=== PATIENT | female | born 1960 | race Caucasian/White ===

== ENCOUNTER → 2016-06-28 | Outpatient (CLI) | payer SELFPAY ==
[2014-02-23 10:45] VITALS: BP 121/70
[~2016-06-28] MED LIST: ALPR1TAB2 PO; DEXT20TA2 PO
--- NOTE | 2016-06-28 11:24 | KCIC ---
Examination: Two views of the chest HISTORY History of cough for 2 weeks. COMPARISON None available Findings : The cardiomediastinal silhouette grossly appears unremarkable. There is no acute infiltrate or visualized pneumothorax identified. Mild prominent appearing bilateral perihilar bronchovascular markings. Impression: Mild prominent bilateral perihilar bronchovascular markings could be due to bronchitis. Electronically signed by: Eulogio Dubois (Jun 28, 2016 11:23:13)
== END | disposition home or self-care (01) ==
LOC: KCIC 10:13
PROVIDERS: ATTEND Nurse Practitioner Family
DX: R05 Cough (principal); R50.9 Fever, unspecified; F17.200 Nicotine dependence, unspecified, uncomplicated
CPT/HCPCS: 71020

== ENCOUNTER → 2019-01-21 | Outpatient (CLI) | payer OTHER ==
[2014-02-23 10:45] VITALS: BP 121/70
--- NOTE | 2019-01-21 17:42 | KCIC ---
Bone mineral density exam History: Osteoporosis screening, postmenopausal Comparison: None Findings: Bone mineral density examination utilizing DEXA was performed. Left hip bone mineral density of 0.72 g/cm2 corresponds with a T score -1.8, Z score -1.1 The bone mineral density of the lumbar spine was 0.801 g/cm2 which corresponds with a T-score of -2.2, Z score -1.1. By World Congress on Osteoporosis criteria, a T score of 0 to-1 SD is considered to be within normal limits. A T score of -1 to -2.5 SD is considered osteopenia. A T score less than -2.5 SD is considered osteoporosis Impression: 1. There is osteopenia of the lumbar spine and the left hip. Electronically signed by: Alirio Cedillo MD (01/21/2019 5:39 PM) [facility]
--- NOTE | 2019-01-22 13:19 | KCIC ---
BILATERAL SCREENING MAMMOGRAM History: Routine screening. Comparison: Right CC November 03, 2012. Right MLO 05/19/2013. No left mammogram comparison images are available. Technique: Routine bilateral digital mammogram views were obtained. Findings: Breast Tissue Density B : There are scattered areas of fibroglandular density. There are a few punctate microcalcifications in each breast. There are no dominant masses, suspicious microcalcifications, or architectural distortion. IMPRESSION: No mammographic evidence of malignancy. Recommend routine screening. BI-RADS category 2: Benign findings. The images were reviewed with computer aided detection. Patient information is entered into the reminder system with a target due date for the next screening mammogram. Mammography is the most sensitive method for finding small breast cancers, but it does not detect them all and is not a substitute for careful clinical examination. A negative mammogram does not negate a clinically suspicious finding and should not result in delay in biopsying a clinically suspicious abnormality. "Our facility is accredited by the [employer] Mammography Program." Electronically signed by: Karan Balderrama MD (01/22/2019 1:16 PM) [facility]
== END | disposition home or self-care (01) ==
LOC: KCIC DEXA 11:06
PROVIDERS: ATTEND Nurse Practitioner Family
DX: Z13.820 Encounter for screening for osteoporosis (principal); Z12.31 Encounter for screening mammogram for malignant neoplasm of breast; M85.88 Other specified disorders of bone density and structure, other site; N95.9 Unspecified menopausal and perimenopausal disorder
CPT/HCPCS: 77067; 77080

== ENCOUNTER → 2019-01-29 | Outpatient (CLI) | payer OTHER ==
[2014-02-23 10:45] VITALS: BP 121/70
--- NOTE | 2019-01-29 14:08 | KCIC ---
EXAM: CHEST 2 VIEWS. HISTORY: Bronchitis. COMPARISON: 06/28/2016. FINDINGS: Frontal and lateral views of the chest are obtained. Hyperinflation is consistent with chronic obstructive pulmonary disease. There are no confluent infiltrates. There is no pneumothorax or pleural effusion. The heart is not enlarged. An azygos fissure is noted. IMPRESSION: 1. Chronic obstructive pulmonary disease. No confluent infiltrates. Electronically signed by: Evangelist Carpio MD (01/29/2019 2:05 PM) [facility]
== END | disposition home or self-care (01) ==
LOC: KCIC 10:55
PROVIDERS: ATTEND Nurse Practitioner Family
DX: J44.9 Chronic obstructive pulmonary disease, unspecified (principal)
CPT/HCPCS: 71046

== ENCOUNTER 2020-11-30 09:12 | Emergency (ER) | payer OTHER ==
[~2020-11-30] VITALS: Ht 165.1 cm; Wt 65.0 kg
[2020-11-30] MEDS ORDERED: DEXAMETHASONE SOD PHOS 20 MG/5 ML VIAL. IV ONE (09:30)
[2020-11-30] MEDS ORDERED: IV NORMAL SALINE 1000ML BAG 1,000 ML IV SCH (09:30)
[2020-11-30] MEDS ORDERED: ALBUTEROL SULFATE 2.5 MG/3 ML NEBU. CONT NEB ONE (09:30)
[2020-11-30 09:56] LABS: BASO % 1 % (0-3); EOS % 0 % (0-3); HEMATOCRIT 41.8 % (36.0-47.0); HEMOGLOBIN 14.1 g/dL (12.0-15.5); LYMPH # 0.6 x10^3/uL (1.0-4.8); LYMPH % 10 % (24-48); MEAN CORPUSCULAR HEMOGLOBIN 31 pg (25-35); MEAN CORPUSCULAR HGB CONC 34 g/dL (31-37); MEAN CORPUSCULAR VOLUME 91 fL (79-100); MONO # 0.7 x10^3/uL (0.0-1.1); MONO % 12 % (0-9); NEUT # 4.3 x10^3/uL (1.8-7.7); NEUT % 77 % (31-73); PLATELET COUNT 255 x10^3/uL (140-400); RED BLOOD COUNT 4.59 x10^6/uL (3.50-5.40); RED CELL DISTRIBUTION WIDTH 13.7 % (11.5-14.5); WHITE BLOOD COUNT 5.6 x10^3/uL (4.0-11.0)
[2020-11-30 09:57] LABS: BASE EXCESS COOX 0 mmol/L (-3-3); HCO3 COOX 25 mmol/L (21-28); METHEMOGLOBIN 0.4 % (0.0-1.9); OXYHEMOGLOBIN 95.4 %; PCO2 COOX 39 mmHg (35-46); PO2 COOX 82 mmHg (75-108); SAT O2 COOX 96 % (92-99)
--- NOTE | 2020-11-30 09:58 | PHYS DOC ---
General Adult EDM: Chief Complaint: FLU SYMPTOM HPI: HPI: Patient is a 60 year old female who presents with shortness of breath that got worse last night for the last 3 days. She is having chest tightness and a cough. She states that she is not vaccinated for Covid but was around recently her [id number] who was not feeling well and came down with Covid. Patient denies any past medical history or taking any medications daily. She denies any surgery. She is postmenopausal. Patient does smoke cigarettes daily. She denies chest pain, headache, dizziness, fever, nausea, vomiting, diarrhea, body aches, numbness or tingling, focal weakness, any vision changes or syncope. (OZZY DING APRN) Review of Systems: Review of Systems: Constitutional: Denies fever or chills. [] Eyes: Denies change in visual acuity. [] HENT: Denies nasal congestion or sore throat. [] Respiratory: +cough or +shortness of breath. [] Cardiovascular: + chest pain or denies edema. [] GI: Denies abdominal pain, nausea, vomiting, bloody stools or diarrhea. [] : Denies dysuria. [] Musculoskeletal: Denies back pain or joint pain. [] Integument: Denies rash. [] Neurologic: Denies headache, focal weakness or sensory changes. [] Endocrine: Denies polyuria or polydipsia. [] Lymphatic: Denies swollen glands. [] Psychiatric: Denies depression or anxiety. [] (OZZY DING APRN) Heart Score: C/O Chest Pain: Yes HEART Score for Chest Pain: HEART Score for Chest Pain Response (Comments) Value History Slighlty/Non-Suspicious 0 ECG Nonspecific Repolarizatio 1 Age >45 - < 65 1 Risk Factors 1 or 2 Risk Factors 1 Troponin < Normal Limit 0 Total 3 Risk Factors: Risk Factors: DM, Current or recent (<one month) smoker, HTN, HLP, family history of CAD, obesity. Risk Scores: Score 0 - 3: 2.5% MACE over next 6 weeks - Discharge Home Score 4 - 6: 20.3% MACE over next 6 weeks - Admit for Clinical Observation Score 7 - 10: 72.7% MACE over next 6 weeks - Early Invasive Strategies (BAFUS,OZZY M SACK SEWER MACHINE) Current Medications: Current Medications Medications (Trade) Dose Ordered Sig/Brittany Start Time Stop Time Status Last Admin Dose Admin Albuterol Sulfate (Ventolin Neb Soln) 10 mg 1X ONCE 11/30/20 09:30 11/30/20 09:40 DC Dexamethasone Sodium Phosphate (Decadron) 10 mg 1X ONCE 11/30/20 09:30 11/30/20 09:40 DC 11/30/20 09:46 10 MG Sodium Chloride 1,000 ml @ 1,000 mls/hr Q1H 11/30/20 09:30 11/30/20 10:29 11/30/20 09:46 1,000 MLS/HR (OZZY DING APRN) Allergies: Allergies: Allergies Coded Allergies Type Severity Reaction Last Updated Verified No Known Drug Allergies 02/23/14 No (OZZY DING APRN) Physical Exam: PE: Constitutional: Well developed, well nourished, no acute distress, non-toxic appearance. [] HENT: Normocephalic, atraumatic, bilateral external ears normal, oropharynx moist, no oral exudates, nose normal. [] Eyes: PERRLA, EOMI, conjunctiva normal, no discharge. [] Neck: Normal range of motion, no tenderness, supple, no stridor. [] Cardiovascular:Heart rate regular rhythm, no murmur [] Lungs & Thorax: Bilateral breath sounds diminished with upper lung lobes inspiratory expiratory wheezing to auscultation. Accessory muscle use [] Abdomen: Bowel sounds normal, soft, no tenderness, no masses, no pulsatile masses. [] Skin: Warm, dry, no erythema, no rash. [] Back: No tenderness, no CVA tenderness. [] Extremities: No tenderness, no cyanosis, no clubbing, ROM intact, no edema. [] Neurologic: Alert and oriented X 3, normal motor function, normal sensory function, no focal deficits noted. [] Psychologic: Affect normal, judgement normal, mood normal. [] (OZZY DING APRN) EKG: EK and read by Dr. Ramos as sinus rhythm and no STEMI. (OZZY DING SACK SEWER MACHINE) Radiology/Procedures: Radiology/Procedures: [] Impression: [facility] [address] [place] [address] IMAGING REPORT Signed PATIENT: CHANNING HICKEY ACCOUNT: [id number] : 1960 LOCATION: ER AGE: 60 SEX: F EXAM STATUS: REG ER ORD. PHYSICIAN: OZZY DING APRN REASON: soa PROCEDURE: PORTABLE CHEST 1V EXAM: Chest, single view. HISTORY: Shortness of air. COMPARISON: 01/29/2019 FINDINGS: A frontal view of the chest is obtained. There is no infiltrate, pleural effusion or pneumothorax. There is an incidental azygos lobe. There is biapical pleural parenchymal scarring. There are healed rib fractures. There are incidental nipple shadows. IMPRESSION: No acute pulmonary finding. Electronically signed by: Lidia Barnett MD (11/30/2020 10:30 AM) [id number] DICTATED and SIGNED BY: LIDIA BARNETT MD DATE: 11/30/20 [id number] [facility] [address] [place] [address] IMAGING REPORT Signed PATIENT: CHANNING HICKEY ACCOUNT: [id number] : 1960 LOCATION: ER AGE: 60 SEX: F EXAM STATUS: REG ER ORD. PHYSICIAN: OZZY DING APRN REASON: SOA PATIENT TO FINISH BREATHING TREATMENT PRIOR CT PER SHEILA PRECIADO. NURSE TO PROCEDURE: CT ANGIOGRAPHY CHEST EXAM: CT angiography of the chest with intravenous contrast. HISTORY: Shortness of breath. TECHNIQUE: Computed tomographic images of the chest were obtained following the administration of intravenous contrast according to angiography protocol. Multiplanar reformatting was performed and three dimensional maximum intensity projection images were obtained. *One or more of the following individualized dose reduction techniques were utilized for this examination: 1. Automated exposure control. 2. Adjustment of the mA and/or kV according to patient size. 3. Use of iterative reconstruction technique. COMPARISON: None. FINDINGS: There is no evidence of pulmonary embolism. There is no pneumothorax or pleural effusion. There is pulmonary emphysema with biapical pleural parenchymal scarring. There are groundglass nodular opacities within the medial right middle lobe, likely infectious or inflammatory in etiology. There is an incidental azygos lobe. The heart is normal in size. There is no lymphadenopathy. There are hepatic cysts, the largest of which measures 2.9 cm within the left hepatic lobe. There is no acute finding involving the upper abdomen. There is no acute or suspicious osseous finding. IMPRESSION: 1. No evidence of pulmonary embolism. 2. Tiny groundglass opacities within the right middle lobe, likely infectious or inflammatory in etiology. Correlate for pneumonia/pneumonitis. There is no consolidated infiltrate 3. Emphysema. 4. Hepatic cysts. Electronically signed by: Lidia Barnett MD (11/30/2020 11:59 AM) [id number] DICTATED and SIGNED BY: LIDIA BARNETT MD DATE: 11/30/20 [id number] (OZZY DING APRN) Course & Med Decision Making: Course & Med Decision Making Pertinent Labs and Imaging studies reviewed. (See chart for details) COVID-19 CRITERIA: The patient was evaluated during the global COVID-19 pandemic, and that diagnosis was suspected/considered upon their initial presentation. Their evaluation, treatment and testing was consistent with current guidelines for patients who present with complaints or symptoms that may be related to COVID-19. See HPI. Alert and oriented x4. Speaks in one-word sentences and is using accessory muscles in breathing. Skin pink warm and dry. Room air she is 90%. Lungs are generally diminished with slight inspiratory expiratory wheezes in the upper lobes bilaterally. She is afebrile. No extremity edema. On 2 L she is 99%. Patient is admitted to [facility] and I have given report to Dr. Malone and he has accepted [] (OZZY DING APRN) Course & Med Decision Making I have reviewed and agree with all pertinent clinical information above including history, exam, and recommendations. Jaden Ramos DO (JADEN RAMOS DO) Macy Disclaimer: Macy Disclaimer: This electronic medical record was generated, in whole or in part, using a voice recognition dictation system. (OZZY DING APRN) COVID-19 Patient Risks: Age 65 or older: No Sign of co-morbidity: Yes Exp to person + for COVID: No Exp to PUI: Yes Travel from affected area: No Lower respiratory symptoms: Yes Fever: No Other: No (OZZY DING APRN) PPE Use: Full PPE with N95 mask or PAPR: Yes (OZZY DING APRN) Departure Departure Impression: Primary Impression: Person under investigation for COVID-19 Additional Impression: Pneumonia Qualified Codes: J18.9 - Pneumonia, unspecified organism Disposition: 02 [facility] (transfer to [facility]) Condition: STABLE Referrals: CLEMENTINE G[facility] SALTER (PCP) OZZY DING APRN Nov 30, 2020 09:58 JADEN RAMOS DO Nov 30, 2020 18:19
[2020-11-30 10:03] LABS: CALCIUM 9.1 mg/dL (8.5-10.1); CREATININE 0.7 mg/dL (0.6-1.0); GFR 85.9; POTASSIUM 4.3 mmol/L (3.5-5.1)
[2020-11-30 10:08] LABS: ALBUMIN 3.7 g/dL (3.4-5.0); TOTAL BILIRUBIN 0.6 mg/dL (0.2-1.0); TOTAL PROTEIN 7.4 g/dL (6.4-8.2)
[2020-11-30] MEDS ORDERED: IOHEXOL 350 MG/ML 100 ML VIAL. IV ONE (10:15)
[2020-11-30] MEDS ORDERED: CONTRAST GIVEN. MC PRN (10:15)
--- NOTE | 2020-11-30 10:33 | RAD ---
EXAM: Chest, single view. HISTORY: Shortness of air. COMPARISON: 01/29/2019 FINDINGS: A frontal view of the chest is obtained. There is no infiltrate, pleural effusion or pneumo thorax. There is an incidental azygos lobe. There is biapical pleural parenchymal scarring. There are healed rib fractures. There are incidental nipple shadows. IMPRESSION: No acute pulmonary finding. Electronically signed by: Lidia Cornelius MD (11/30/2020 10:30 AM) [id number]
[2020-11-30 11:41] LABS: BILIRUBIN,URINE NEGATIVE (NEG); CLARITY,URINE CLEAR; COLOR,URINE YELLOW; NITRITE,URINE NEGATIVE (NEG); PH,URINE 5.5 (<5.0-8.0); PROTEIN,URINE 30 mg/dL (NEG-TRACE); UROBILINOGEN,URINE 0.2 mg/dL (0.2 mg/dL)
[2020-11-30 11:50] LABS: BACTERIA,URINE FEW /HPF (0-FEW)
--- NOTE | 2020-11-30 12:01 | RAD ---
EXAM: CT angiography of the chest with intravenous contrast. HISTORY: Shortness of breath. TECHNIQUE: Computed tomographic images of the chest were obtained following the administration of int ravenous contrast according to angiography protocol. Multiplanar reformatting was performed and three dimensional maximum intensity projection images were obtained. *One or more of the following individualized dose reduction techniques were utilized for this examina tion: 1. Automated exposure control. 2. Adjustment of the mA and/or kV according to patient size. 3. Use of iterative reconstruction technique. COMPARISON: None. FINDINGS: There is no evidence of pulmonary embolism. There is no pneumothorax or pleural effusion. T here is pulmonary emphysema with biapical pleural parenchymal scarring. There are groundglass nodular opacities within the medial right middle lobe, likely infectious or inflammatory in etiology. There is an incidental azygos lobe. The heart is normal in size. There is no lymphadenopathy. There are hepatic cysts, the largest of whi ch measures 2.9 cm within the left hepatic lobe. There is no acute finding involving the upper abdome n. There is no acute or suspicious osseous finding. IMPRESSION: 1. No evidence of pulmonary embolism. 2. Tiny groundglass opacities within the right middle lobe, likely infectious or inflammatory in etio logy. Correlate for pneumonia/pneumonitis. There is no consolidated infiltrate 3. Emphysema. 4. Hepatic cysts. Electronically signed by: Lidia Cornelius MD (11/30/2020 11:59 AM) [id number]
[2020-11-30] MEDS ORDERED: IV NORMAL SALINE 1000ML BAG 1,000 ML IV ONE (12:15)
[2020-11-30 15:24] VITALS: BP 154/68
--- NOTE | 2020-11-30 18:12 | NUR ---
IP: Informed pt of negative covid test. Pt verbalized understanding.
== END 2020-11-30 15:40 | disposition short-term general hospital (02) ==
LOC: ER 09:12
DX: J18.9 Pneumonia, unspecified organism (principal); Z20.822 Contact with and (suspected) exposure to COVID-19
CPT/HCPCS: 36415; 36600; 71045; 71275; 80053; 81001; 82805; 83880; 84484; 85025; 87040; 94640; 96361; 96374; 96375; 99285; J1100; J2060; J7030; J7613; Q9967; U0003; U0005